=== PATIENT | female | born 1965 | race American Indian/Alaskan Native ===

== ENCOUNTER 2018-10-01 14:06 | Emergency (ER) | payer OTHER ==
[2018-10-01 15:15] VITALS: BP 132/81
--- NOTE | 2018-10-01 15:16 | Event Note ---
ED Screening Note Date of service: 10/01/18 Time: 15:12 ED Screening Note: This is a 52 y.o. F. that presents to the ER with cramping and boiling sensation to upper abdomen after eating. She took zantac and pepto bismol with minimal improvement of symptoms. Reports burning sensation that radiates up. Denies n/v/d or tarry stools. PMH of HTN This initial assessment/diagnostic orders/clinical plan/treatment(s) is/are subject to change based on patients health status, clinical progression and re- assessment by fellow clinical providers in the ED. Further treatment and workup at subsequent clinical providers discretion. Patient/guardian urged not to elope from the ED as their condition may be serious if not clinically assessed and managed. Initial orders include: Labs
[2018-10-01 15:50] LABS: Basophils # (Auto) 0.1 K/mm3 (0.0-0.1); Basophils % (Auto) 0.8 % (0.0-1.8); Eosinophils # (Auto) 0.3 K/mm3 (0.0-0.4); Eosinophils % (Auto) 3.4 % (0.0-4.3); Hematocrit 41.2 % (30.3-42.9); Hemoglobin 14.3 gm/dl (10.1-14.3); Lymphocytes # (Auto) 3.2 K/mm3 (1.2-5.4); Lymphocytes % (Auto) 36.1 % (13.4-35.0); Mean Corpuscular HGB Conc 35 % (30-34); Mean Corpuscular Volume 94 fl (79-97); Monocytes # (Auto) 0.8 K/mm3 (0.0-0.8); Monocytes % (Auto) 8.5 % (0.0-7.3); Platelet Count 564 K/mm3 (140-440); Red Blood Count 4.38 M/mm3 (3.65-5.03)
[2018-10-01 16:10] LABS: Alanine Aminotransferase 24 units/L (7-56); BUN/Creatinine Ratio 38; Blood Urea Nitrogen 19 mg/dL (7-17); Calcium 10.5 mg/dL (8.4-10.2); Hemolysis Index 9
[2018-10-01 16:11] LABS: Bilirubin,Urine NEG (Negative); Blood,Urine NEG (Negative); Color,Urine Yellow (Yellow); Protein,Urine <15 mg/dL mg/dL (Negative); Urobilinogen,Urine < 2.0 mg/dL (<2.0); WBC,Urine < 1.0 /HPF (0.0-6.0)
[2018-10-01] MEDS ORDERED: LIDOCAINE VISCOUS 2% PO ONE (17:02)
[2018-10-01] MEDS ORDERED: ALUM-MAG HYDROX-SIMETH 200-200-20MG/5ML PO ONE (17:02)
--- NOTE | 2018-10-01 17:17 | Emergency Department Report ---
ED Abdominal Pain HPI - General Chief Complaint: Abdominal Pain Stated Complaint: STOMACH PAIN Time Seen by Provider: 10/01/18 15:12 Source: patient Mode of arrival: Ambulatory Limitations: No Limitations - History of Present Illness Initial Comments: 52-year-old -[place] female presents to the emergency room with abdominal pain since Wednesday. Patient reports that the pain is located in her epigastric area and it travels up and she reports when she makes herself vomit she feels better. Patient reports that she tried taken [id number] Pepcid and Zantac with minimal result. Patient does have a history of hypertension and is currently on amlodipine and hydrochlorothiazide. Patient has a primary care provider. MD Complaint: abdominal pain Onset/Timin -: days(s) Location: epigastric Radiation: other (up to her ) Severity scale (0 -10): 8 Quality: fullness Consistency: intermittent Improves With: vomiting Worsens With: nothing Associated Symptoms: nausea Treatments Prior to Arrival: antacids - Related Data Previous Rx's Medication Instructions Recorded Last Taken Type Cyclobenzaprine [Flexeril] 10 mg PO TID PRN #30 tablet 12/06/[address] [Voltaren] 75 mg PO TID #60 tablet 12/06/12 Unknown Rx traMADol [Ultram 50 MG tab] 50 mg PO Q4HR PRN #20 tablet 12/06/12 Unknown Rx Mag Hydrox/Aluminum Hyd/Simeth 15 ml PO Q8H PRN #148 ml 10/01/18 Unknown Rx [Maalox Advanced Suspension] Allergies Allergy/AdvReac Type Severity Reaction Status Date / Time No Known Allergies Allergy Verified 10/01/18 17:09 ED Review of Systems ROS: Stated complaint: STOMACH PAIN Other details as noted in HPI Comment: All other systems reviewed and negative ED Past Medical Hx - Past Medical History Hx Hypertension: Yes Additional medical history: obesity - Social History Smoking Status: Current Every Day Smoker - Medications Home Medications: Home Medications Medication Instructions Recorded Confirmed Last Taken Type Cyclobenzaprine [Flexeril] 10 mg PO TID PRN #30 tablet 12/06/[address] [Voltaren] 75 mg PO TID #60 tablet 12/06/12 Unknown Rx traMADol [Ultram 50 MG tab] 50 mg PO Q4HR PRN #20 tablet 09/10/13 Unknown Rx Mag Hydrox/Aluminum Hyd/Simeth 15 ml PO Q8H PRN #148 ml 10/01/18 Unknown Rx [Maalox Advanced Suspension] ED Physical Exam - General Limitations: No Limitations General appearance: alert, in no apparent distress - Head Head exam: Present: atraumatic, normocephalic - Eye Eye exam: Present: normal appearance - ENT ENT exam: Present: mucous membranes moist - Neck Neck exam: Present: normal inspection - Respiratory Respiratory exam: Present: normal lung sounds bilaterally. Absent: respiratory distress - Cardiovascular Cardiovascular Exam: Present: regular rate, normal rhythm. Absent: systolic murmur, diastolic murmur, rubs, gallop - GI/Abdominal GI/Abdominal exam: Present: soft, normal bowel sounds - Extremities Exam Extremities exam: Present: normal inspection - Back Exam Back exam: Present: normal inspection - Neurological Exam Neurological exam: Present: alert, oriented X3 - Psychiatric Psychiatric exam: Present: normal affect, normal mood - Skin Skin exam: Present: warm, dry, intact, normal color. Absent: rash ED Course Vital Signs 10/01/18 15:10 Temperature 97.7 F Pulse Rate 88 Respiratory 18 Rate Blood Pressure 132/81 O2 Sat by Pulse 97 Oximetry ED Medical Decision Making - Lab Data Result diagrams: 10/01/18 15:28 10/01/18 15:28 - Medical Decision Making 2-year-old female comes in for epigastric pain since Wednesday. Labs are stable mildly elevated calcium of 10.5. Patient will be given a GI cocktail consisting of Maalox and viscous lidocaine. Patient does have a primary care provider refer her to follow-up for elevated calcium. Patient's vital signs are stable. Critical care attestation.: If time is entered above; I have spent that time in minutes in the direct care of this critically ill patient, excluding procedure time. ED Disposition Clinical Impression: Gastritis Qualifiers: Gastritis type: unspecified gastritis Chronicity: acute Gastritis bleeding: without bleeding Qualified Code(s): K29.00 - Acute gastritis without bleeding Disposition: TO HOME OR SELFCARE Is pt being admited?: No Does the pt Need Aspirin: No Condition: Stable Instructions: Abdominal Pain (ED) Additional Instructions: You is to take Maalox as prescribed. Avoid spicy greasy foods do not lay down after eating as this can exacerbate her stomach. Follow-up with her primary care provider if his symptoms persist or gets worse. I have also elicited a airport engineer which is a stomach specialist on your discharge paperwork as well. Prescriptions: Mag Hydrox/Aluminum Hyd/Simeth [Maalox Advanced Suspension] 15 ml PO Q8H PRN #148 ml PRN Reason: Gas Pain Referrals: [facility] [Provider Group] - 3-5 Days
== END 2018-10-01 18:26 | disposition home or self-care (01) ==
LOC: ED 14:06
DX: K29.00 Acute gastritis without bleeding (principal); I10 Essential (primary) hypertension; F17.200 Nicotine dependence, unspecified, uncomplicated; Z79.899 Other long term (current) drug therapy
CPT/HCPCS: 36415; 80053; 81001; 83690; 85025; 99283